=== PATIENT | female | born 1945 | race African-American/Black ===

== ENCOUNTER 2016-09-16 08:24 | Emergency (ER) | payer MEDICARE, OTHER ==
[2016-09-16] MEDS ORDERED: Ketorolac Tromethamine 60 MG/2 ML VIAL ONE (08:41)
[2016-09-16] MEDS ORDERED: HYDROcodone/Acetaminophen 10/325 mg Tablet ONE (09:05)
[2016-09-16] MEDS ORDERED: Dexamethasone 4 mg/ml Vial ONE (09:06)
--- NOTE | 2016-09-16 20:07 | RAD ---
LEFT HIP: FINDINGS: No fracture was seen. There is mild joint space narrowing and some very minimal bony spurring. Ther e is slight sclerosis of the body of the left pubic bone near the symphysis, most likely long standi ng. IMPRESSION: 1. Minimal arthritic changes. 2. Mild sclerosis of the body of the left pubic bone of uncertain significance, probably not acute. POS: HOME
== END 2016-09-16 09:15 | disposition home or self-care (01) ==
LOC: BURERS 08:24
DX: M16.12 Unilateral primary osteoarthritis, left hip (principal); I10 Essential (primary) hypertension; Z79.891 Long term (current) use of opiate analgesic; Z79.899 Other long term (current) drug therapy
CPT/HCPCS: 96372; J1100; J1885

== ENCOUNTER 2017-06-08 15:23 | Emergency (ER) | payer MEDICARE, OTHER ==
[2017-06-08 16:19] LABS: Hemoglobin 12.8 g/dL (12.0-16.0); Mean Corpuscular HGB CONC 31.2 g/dL (32.0-36.0); Mean Corpuscular Hemoglobin 27.1 pg (27.0-31.0); Mean Corpuscular Volume 86.9 fl (81.0-99.0); Mean Platelet Volume 10.5 fL (7.4-10.4); Platelet Count 184 thou/uL (130-400); RBC Distribution Width 15.5 % (11.5-14.5); Red Blood Cell (RBC) Count 4.72 mill/uL (4.20-5.40); White Blood Cell (WBC) Count 20.2 thou/uL (4.8-10.8)
[2017-06-08 16:31] LABS: ALT (SGPT) 15 U/L (8-55); AST (SGOT) 14 U/L (5-34); Alkaline Phosphatase 127 U/L (40-150); Anion Gap 20 mmol/L (10-20); BUN (Urea Nitrogen) 41 mg/dL (9.8-20.1); Calc. Creatinine Clearance 0 mL/min (70-130); Calcium 10.3 mg/dL (7.8-10.44); Carbon Dioxide 26 mmol/L (23-31); Chloride 98 mmol/L (98-107); Estimated GFR-MDRD 51; Globulin 3.5 g/dL (2.4-3.5); Glucose 123 mg/dL (80-115); Potassium 4.1 mmol/L (3.5-5.1); Protein, Total 7.5 g/dL (6.0-8.3); Sodium 140 mmol/L (136-145)
[2017-06-08 16:33] LABS: Lymphocytes 16 % (21-51); MDiff Complete? YES; Monocytes 16 % (0-10); Neutrophil 67 % (42-75)
--- NOTE | 2017-06-08 18:07 | RAD ---
CHEST TWO VIEWS 06/08/17 HISTORY: Productive cough. FINDINGS: The cardiac silhouette and pulmonary vasculature are unremarkable. Mediastinum is midline with aortic calcification. There is no confluent air space consolidation, pneumothorax or pleural fluid apparent . Degenerative changes involve the thoracic spine and shoulders. IMPRESSION: 1. Atherosclerosis. 2. No active cardiopulmonary abnormalities are demonstrated. POS: [facility]
[2017-06-08] MEDS ORDERED: traMADol HCl 50 MG TAB ONE (18:20)
[2017-06-08 19:35] LABS: Bilirubin Negative (Negative); Blood, Urine Negative (Negative); Clarity Clear (Clear); Glucose, Urine (Dipstick) Negative (Negative); Leukocyte Negative (Negative); Nitrite Negative (Negative); Protein, Urine (Dipstick) Negative (Neg-Trace); pH, Urine 6.5 (5.0-9.0)
== END 2017-06-08 20:42 | disposition home or self-care (01) ==
LOC: BURERS 15:23
DX: E86.0 Dehydration (principal); I10 Essential (primary) hypertension; F17.210 Nicotine dependence, cigarettes, uncomplicated; Z79.899 Other long term (current) drug therapy
CPT/HCPCS: 71020; 80053; 81003; 83605; 85025; 96360; 96361

== ENCOUNTER 2017-06-15 10:09 | Emergency (ER) | payer MEDICARE, OTHER ==
[2017-06-15 10:57] LABS: #Basophils 0.1 thou/uL (0.0-0.2); #Eosinphils 0.1 thou/uL (0.0-0.7); #Lymphocytes 1.3 thou/uL (1.20-3.40); #Neutrophils 7.5 thou/uL (1.40-6.50); %Basophils 1.4 % (0.0-1.0); %Eosinophils 1.2 % (0.0-10.0); %Lymphocytes 12.9 % (21.0-51.0); %Monocytes 9.5 % (0.0-10.0); Hemoglobin 10.1 g/dL (12.0-16.0); Mean Corpuscular HGB CONC 32.4 g/dL (32.0-36.0); Mean Corpuscular Hemoglobin 27.9 pg (27.0-31.0); Mean Corpuscular Volume 85.9 fl (81.0-99.0); Platelet Count 237 thou/uL (130-400); RBC Distribution Width 14.4 % (11.5-14.5); Red Blood Cell (RBC) Count 3.64 mill/uL (4.20-5.40)
[2017-06-15 11:18] LABS: ALT (SGPT) 84 U/L (8-55); AST (SGOT) 206 U/L (5-34); Albumin 3.4 g/dL (3.4-4.8); Alkaline Phosphatase 111 U/L (40-150); Anion Gap 26 mmol/L (10-20); BUN (Urea Nitrogen) 72 mg/dL (9.8-20.1); Bilirubin, Total 0.6 mg/dL (0.2-1.2); Calc. Creatinine Clearance 0 mL/min (70-130); Calcium 8.6 mg/dL (7.8-10.44); Carbon Dioxide 18 mmol/L (23-31); Chloride 91 mmol/L (98-107); Estimated GFR-MDRD 18; Glucose 107 mg/dL (80-115); Potassium 3.9 mmol/L (3.5-5.1); Protein, Total 6.4 g/dL (6.0-8.3); Sodium 131 mmol/L (136-145)
[2017-06-15 11:28] LABS: CKMB 143.2 ng/mL (0-6.6)
[2017-06-15] MEDS ORDERED: Heparin 5,000 UNITS/ML VIAL ONE ×2 (11:30→11:49)
--- NOTE | 2017-06-15 16:45 | RAD ---
PORTABLE CHEST: Date: 06-15-17 Time: 1025 Comparison: 05-08-17 FINDINGS: The heart is probably normal in size given the body habitus and an AP film. She is turned slightly to the right which makes evaluation of the lung bases difficult. The lungs are most likely clear. There are no congestive changes, pleural effusions, or other findings of concern. IMPRESSION: No definite acute findings. Minimal basilar haziness is probably due to positioning and overlying sof t tissues. POS: HOME
== END 2017-06-15 12:09 | disposition short-term general hospital (02) ==
LOC: BURERS 10:09
DX: I21.4 Non-ST elevation (NSTEMI) myocardial infarction (principal); N17.9 Acute kidney failure, unspecified; R79.1 Abnormal coagulation profile; I10 Essential (primary) hypertension; F17.210 Nicotine dependence, cigarettes, uncomplicated; Z79.891 Long term (current) use of opiate analgesic; Z79.899 Other long term (current) drug therapy
CPT/HCPCS: 71010; 80053; 82553; 83605; 83880; 84484; 85025; 85379; 87040; 96361; 96374; 96376; J1644

== ENCOUNTER 2017-06-19 12:55 | Inpatient (IN) | payer MEDICARE, OTHER ==
[2017-06-19 14:41] VITALS: BMI 38.9
[2017-06-19] MEDS ORDERED: Senokot 8.6 MG TAB PO PRN (14:58)
[2017-06-19] MEDS ORDERED: Calcium Carbonate 500 MG ChewTAB PO PRN (14:58)
[2017-06-19] MEDS ORDERED: Acetaminophen 325 MG TAB PO PRN (14:58)
[2017-06-19] MEDS ORDERED: Ibuprofen 200 MG TAB PO PRN (15:15)
[2017-06-19] MEDS: Scopolamine 1.5 mg/72 hour Patch TD SCH (16:10)
[2017-06-19] MEDS: Vancomycin HCl 25 MG/ML Oral PO SCH ×2 (17:39→20:38)
[2017-06-19] MEDS: traMADol HCl 50 MG TAB PO PRN (18:53)
[2017-06-19] MEDS: Saccharomyces boulardii 250 MG CAP PO SCH (20:39)
[2017-06-19] MEDS: Sodium Bicarbonate Tab 325 MG TAB PO SCH (20:39)
[2017-06-19] MEDS: Apixaban 5 MG TAB PO SCH (20:39)
[2017-06-19] MEDS: Sulfameth/Trimethoprim DS 800-160mg TAB PO SCH (20:40)
[2017-06-19] MEDS: Famotidine 20 MG TAB PO SCH (20:40)
[2017-06-19] MEDS: PROVENTIL INHALER 6.7 G (200 INHALATIONS) INH PRN (23:18)
[2017-06-20] MEDS: traMADol HCl 50 MG TAB PO PRN ×3 (04:00→20:46)
[2017-06-20 06:10] LABS: #Basophils 0.1 thou/uL (0.0-0.2); #Eosinphils 0.1 thou/uL (0.0-0.7); #Lymphocytes 2.2 thou/uL (1.20-3.40); #Monocytes 1.9 thou/uL (0.11-0.59); #Neutrophils 8.5 thou/uL (1.40-6.50); %Basophils 0.8 % (0.0-1.0); %Eosinophils 1.1 % (0.0-10.0); %Monocytes 14.6 % (0.0-10.0); %Neutrophils 66.5 % (42.0-75.0); Hemoglobin 8.6 g/dL (12.0-16.0); Mean Corpuscular Hemoglobin 27.3 pg (27.0-31.0); Mean Corpuscular Volume 85.3 fl (81.0-99.0); Mean Platelet Volume 6.4 fL (7.4-10.4); Platelet Count 236 thou/uL (130-400); RBC Distribution Width 14.9 % (11.5-14.5); Red Blood Cell (RBC) Count 3.16 mill/uL (4.20-5.40); White Blood Cell (WBC) Count 12.8 thou/uL (4.8-10.8)
[2017-06-20 06:22] LABS: ALT (SGPT) 37 U/L (8-55); AST (SGOT) 23 U/L (5-34); Albumin 2.8 g/dL (3.4-4.8); Alkaline Phosphatase 72 U/L (40-150); Anion Gap 14 mmol/L (10-20); BUN (Urea Nitrogen) 10 mg/dL (9.8-20.1); Bilirubin, Total 0.4 mg/dL (0.2-1.2); Calc. Creatinine Clearance 113 mL/min (70-130); Calcium 9.4 mg/dL (7.8-10.44); Carbon Dioxide 18 mmol/L (23-31); Chloride 116 mmol/L (98-107); Estimated GFR-MDRD Greater than 90; Globulin 3.1 g/dL (2.4-3.5); Glucose 94 mg/dL (80-115); Potassium 3.4 mmol/L (3.5-5.1); Protein, Total 5.9 g/dL (6.0-8.3); Sodium 145 mmol/L (136-145)
--- NOTE | 2017-06-20 06:53 | RAD ---
LEFT AND RIGHT HIP: Date: 06/19/17 Two views of each hip were obtained. No fracture, recent or remote, was seen in either hip. The joint space is normal in width and symmetrical bilaterally. There are no substantial degenerative changes considering the patient's age. Each femoral neck appeared intact, as did each pubic ring. The pubic s ymphysis shows no widening or offset. IMPRESSION: No acute bony findings. POS: HOME
[2017-06-20] MEDS: Sodium Bicarbonate Tab 325 MG TAB PO SCH ×3 (08:46→20:46)
[2017-06-20] MEDS: Atorvastatin Calcium 10 MG TAB PO SCH (08:47)
[2017-06-20] MEDS: Apixaban 5 MG TAB PO SCH ×3 (08:50→20:46)
[2017-06-20] MEDS: Torsemide 20 MG TAB PO SCH (08:51)
[2017-06-20] MEDS: Lisinopril 20 MG TAB PO SCH (08:53)
[2017-06-20] MEDS: Famotidine 20 MG TAB PO SCH ×2 (08:53→20:48)
[2017-06-20] MEDS: Sulfameth/Trimethoprim DS 800-160mg TAB PO SCH ×2 (08:54→21:34)
[2017-06-20] MEDS: Potassium Chloride 20 MEQ TAB PO SCH (08:54)
[2017-06-20] MEDS: Saccharomyces boulardii 250 MG CAP PO SCH ×2 (08:55→20:46)
[2017-06-20] MEDS: Vancomycin HCl 25 MG/ML Oral PO SCH ×4 (08:55→20:54)
[2017-06-20] MEDS: PROVENTIL INHALER 6.7 G (200 INHALATIONS) INH PRN (10:01)
[2017-06-21 06:17] LABS: #Basophils 0.3 thou/uL (0.0-0.2); #Eosinphils 0.2 thou/uL (0.0-0.7); #Lymphocytes 3.4 thou/uL (1.20-3.40); #Monocytes 1.9 thou/uL (0.11-0.59); #Neutrophils 13.7 thou/uL (1.40-6.50); %Basophils 1.6 % (0.0-1.0); %Eosinophils 0.9 % (0.0-10.0); %Lymphocytes 17.3 % (21.0-51.0); %Monocytes 9.7 % (0.0-10.0); %Neutrophils 70.5 % (42.0-75.0); Hemoglobin 10.7 g/dL (12.0-16.0); Mean Corpuscular Hemoglobin 27.9 pg (27.0-31.0); Mean Corpuscular Volume 84.4 fl (81.0-99.0); Mean Platelet Volume 7.2 fL (7.4-10.4); Platelet Count 375 thou/uL (130-400); RBC Distribution Width 14.5 % (11.5-14.5); Red Blood Cell (RBC) Count 3.83 mill/uL (4.20-5.40); White Blood Cell (WBC) Count 19.4 thou/uL (4.8-10.8)
[2017-06-21 06:38] LABS: ALT (SGPT) 35 U/L (8-55); AST (SGOT) 21 U/L (5-34); Albumin 3.2 g/dL (3.4-4.8); Alkaline Phosphatase 96 U/L (40-150); Anion Gap 18 mmol/L (10-20); BUN (Urea Nitrogen) 12 mg/dL (9.8-20.1); Bilirubin, Total 0.4 mg/dL (0.2-1.2); Calc. Creatinine Clearance 84 mL/min (70-130); Calcium 9.3 mg/dL (7.8-10.44); Carbon Dioxide 23 mmol/L (23-31); Chloride 107 mmol/L (98-107); Estimated GFR-MDRD 68; Globulin 3.7 g/dL (2.4-3.5); Glucose 139 mg/dL (80-115); Potassium 3.4 mmol/L (3.5-5.1); Protein, Total 6.9 g/dL (6.0-8.3); Sodium 145 mmol/L (136-145)
[2017-06-21] MEDS: traMADol HCl 50 MG TAB PO PRN (06:46)
[2017-06-21] MEDS: Potassium Chloride 20 MEQ TAB PO SCH (10:22)
[2017-06-21] MEDS: Famotidine 20 MG TAB PO SCH ×2 (10:24→21:39)
[2017-06-21] MEDS: Atorvastatin Calcium 10 MG TAB PO SCH (10:24)
[2017-06-21] MEDS: Lisinopril 20 MG TAB PO SCH (10:25)
[2017-06-21] MEDS: Saccharomyces boulardii 250 MG CAP PO SCH ×2 (10:27→21:39)
[2017-06-21] MEDS: Sodium Bicarbonate Tab 325 MG TAB PO SCH ×3 (10:28→21:38)
[2017-06-21] MEDS: Apixaban 5 MG TAB PO SCH ×2 (10:29→21:39)
[2017-06-21] MEDS: Sulfameth/Trimethoprim DS 800-160mg TAB PO SCH ×2 (10:30→21:39)
[2017-06-21] MEDS: Torsemide 20 MG TAB PO SCH (10:30)
[2017-06-21] MEDS: Vancomycin HCl 25 MG/ML Oral PO SCH ×4 (10:42→21:49)
[2017-06-21] MEDS: HYDROcodone/Acetaminophen 7.5/325 mg Tablet PO PRN ×2 (12:34→18:48)
[2017-06-21] MEDS: Lorazepam 0.5 MG TAB PO PRN ×2 (12:34→23:18)
--- NOTE | 2017-06-21 13:27 | RAD ---
PORTABLE CHEST: Date: 06/21/17 An AP portable film at 1114 hours is compared with the 06/15/17 study. The heart is larger today than before. Additionally, there is some slight congestion of the upper lob e vessels. No lobar consolidations or effusions were seen. It is difficult to see the left base well. IMPRESSION: Early congestive changes. CODE T. POS: HOME
[2017-06-21] MEDS: Sodium Chloride 0.9% 1,000 ML IV SCH (15:00)
[2017-06-21 15:28] LABS: Iron 19 ug/dL (50-170); Iron Binding Capacity, Total 191 mcg/dL (265-497)
[2017-06-22] MEDS: HYDROcodone/Acetaminophen 7.5/325 mg Tablet PO PRN ×3 (01:45→16:31)
[2017-06-22 06:29] LABS: #Basophils 0.3 thou/uL (0.0-0.2); #Eosinphils 0.1 thou/uL (0.0-0.7); #Lymphocytes 1.6 thou/uL (1.20-3.40); #Monocytes 1.3 thou/uL (0.11-0.59); #Neutrophils 10.3 thou/uL (1.40-6.50); %Basophils 1.9 % (0.0-1.0); %Eosinophils 0.8 % (0.0-10.0); %Lymphocytes 11.4 % (21.0-51.0); %Monocytes 9.7 % (0.0-10.0); %Neutrophils 76.2 % (42.0-75.0); Hemoglobin 9.6 g/dL (12.0-16.0); Mean Corpuscular HGB CONC 32.5 g/dL (32.0-36.0); Mean Corpuscular Hemoglobin 27.3 pg (27.0-31.0); Mean Corpuscular Volume 84.1 fl (81.0-99.0); Mean Platelet Volume 6.8 fL (7.4-10.4); Platelet Count 344 thou/uL (130-400); RBC Distribution Width 14.5 % (11.5-14.5); Red Blood Cell (RBC) Count 3.52 mill/uL (4.20-5.40); White Blood Cell (WBC) Count 13.6 thou/uL (4.8-10.8)
[2017-06-22 06:41] LABS: ALT (SGPT) 28 U/L (8-55); AST (SGOT) 18 U/L (5-34); Alkaline Phosphatase 83 U/L (40-150); Anion Gap 18 mmol/L (10-20); BUN (Urea Nitrogen) 16 mg/dL (9.8-20.1); Bilirubin, Total 0.4 mg/dL (0.2-1.2); Calc. Creatinine Clearance 69 mL/min (70-130); Calcium 8.5 mg/dL (7.8-10.44); Carbon Dioxide 23 mmol/L (23-31); Chloride 105 mmol/L (98-107); Estimated GFR-MDRD 54; Globulin 3.4 g/dL (2.4-3.5); Glucose 111 mg/dL (80-115); Potassium 3.4 mmol/L (3.5-5.1); Protein, Total 6.4 g/dL (6.0-8.3); Sodium 143 mmol/L (136-145)
[2017-06-22] MEDS: Vancomycin HCl 25 MG/ML Oral PO SCH ×4 (09:29→20:57)
[2017-06-22] MEDS: Torsemide 20 MG TAB PO SCH (09:31)
[2017-06-22] MEDS: Sodium Bicarbonate Tab 325 MG TAB PO SCH ×3 (09:31→20:59)
[2017-06-22] MEDS: Sulfameth/Trimethoprim DS 800-160mg TAB PO SCH ×2 (09:32→20:58)
[2017-06-22] MEDS: Atorvastatin Calcium 10 MG TAB PO SCH (09:34)
[2017-06-22] MEDS: Apixaban 5 MG TAB PO SCH ×2 (09:34→20:55)
[2017-06-22] MEDS: Saccharomyces boulardii 250 MG CAP PO SCH ×2 (09:35→20:55)
[2017-06-22] MEDS: Famotidine 20 MG TAB PO SCH ×2 (09:35→20:56)
[2017-06-22] MEDS: Lisinopril 20 MG TAB PO SCH (09:36)
[2017-06-22] MEDS: Potassium Chloride 20 MEQ TAB PO SCH (09:37)
[2017-06-22] MEDS: Sodium Chloride 0.9% 1,000 ML IV SCH (09:39)
[2017-06-22] MEDS: predniSONE 20 MG TAB PO SCH (09:42)
[2017-06-22] MEDS: Scopolamine 1.5 mg/72 hour Patch TD SCH (16:29)
[2017-06-23] MEDS: Sodium Chloride 0.9% 1,000 ML IV SCH (05:08)
[2017-06-23 06:31] LABS: #Basophils 0.1 thou/uL (0.0-0.2); #Lymphocytes 1.4 thou/uL (1.20-3.40); #Monocytes 1.6 thou/uL (0.11-0.59); #Neutrophils 9.1 thou/uL (1.40-6.50); %Basophils 0.5 % (0.0-1.0); %Eosinophils 0.1 % (0.0-10.0); %Lymphocytes 11.4 % (21.0-51.0); %Monocytes 13.1 % (0.0-10.0); %Neutrophils 74.7 % (42.0-75.0); Hemoglobin 9.2 g/dL (12.0-16.0); Mean Corpuscular HGB CONC 32.7 g/dL (32.0-36.0); Mean Corpuscular Hemoglobin 27.5 pg (27.0-31.0); Mean Corpuscular Volume 84.3 fl (81.0-99.0); Mean Platelet Volume 7.6 fL (7.4-10.4); Platelet Count 332 thou/uL (130-400); RBC Distribution Width 14.8 % (11.5-14.5); Red Blood Cell (RBC) Count 3.35 mill/uL (4.20-5.40); White Blood Cell (WBC) Count 12.1 thou/uL (4.8-10.8)
[2017-06-23 06:44] LABS: ALT (SGPT) 21 U/L (8-55); AST (SGOT) 15 U/L (5-34); Albumin 2.9 g/dL (3.4-4.8); Alkaline Phosphatase 71 U/L (40-150); Anion Gap 15 mmol/L (10-20); BUN (Urea Nitrogen) 17 mg/dL (9.8-20.1); Bilirubin, Total 0.3 mg/dL (0.2-1.2); Calc. Creatinine Clearance 78 mL/min (70-130); Calcium 8.6 mg/dL (7.8-10.44); Carbon Dioxide 27 mmol/L (23-31); Chloride 103 mmol/L (98-107); Estimated GFR-MDRD 62; Globulin 3.2 g/dL (2.4-3.5); Glucose 93 mg/dL (80-115); Potassium 3.3 mmol/L (3.5-5.1); Protein, Total 6.1 g/dL (6.0-8.3); Sodium 142 mmol/L (136-145)
[2017-06-23] MEDS: predniSONE 20 MG TAB PO SCH (08:40)
[2017-06-23] MEDS: Vancomycin HCl 25 MG/ML Oral PO SCH ×4 (08:41→21:00)
[2017-06-23] MEDS: Famotidine 20 MG TAB PO SCH ×2 (08:42→21:00)
[2017-06-23] MEDS: Torsemide 20 MG TAB PO SCH (08:44)
[2017-06-23] MEDS: Sulfameth/Trimethoprim DS 800-160mg TAB PO SCH ×2 (08:46→21:00)
[2017-06-23] MEDS: Lisinopril 20 MG TAB PO SCH (08:47)
[2017-06-23] MEDS: Atorvastatin Calcium 10 MG TAB PO SCH (08:50)
[2017-06-23] MEDS: Apixaban 5 MG TAB PO SCH ×2 (08:50→20:59)
[2017-06-23] MEDS: Potassium Chloride 20 MEQ TAB PO SCH ×2 (08:52→18:12)
[2017-06-23] MEDS: Sodium Bicarbonate Tab 325 MG TAB PO SCH ×3 (08:55→20:59)
[2017-06-23] MEDS: Saccharomyces boulardii 250 MG CAP PO SCH ×2 (08:56→20:59)
[2017-06-24] MEDS: Sodium Chloride 0.9% 1,000 ML IV SCH (00:40)
[2017-06-24 06:13] LABS: #Basophils 0.2 thou/uL (0.0-0.2); #Lymphocytes 1.8 thou/uL (1.20-3.40); #Monocytes 1.3 thou/uL (0.11-0.59); #Neutrophils 10.1 thou/uL (1.40-6.50); %Basophils 1.2 % (0.0-1.0); %Eosinophils 0.1 % (0.0-10.0); %Lymphocytes 13.1 % (21.0-51.0); %Neutrophils 75.6 % (42.0-75.0); Hemoglobin 9.4 g/dL (12.0-16.0); Mean Corpuscular HGB CONC 31.7 g/dL (32.0-36.0); Mean Corpuscular Hemoglobin 27.1 pg (27.0-31.0); Mean Corpuscular Volume 85.5 fl (81.0-99.0); Mean Platelet Volume 6.9 fL (7.4-10.4); Platelet Count 383 thou/uL (130-400); Red Blood Cell (RBC) Count 3.45 mill/uL (4.20-5.40); White Blood Cell (WBC) Count 13.4 thou/uL (4.8-10.8)
[2017-06-24 06:25] LABS: ALT (SGPT) 20 U/L (8-55); AST (SGOT) 17 U/L (5-34); Albumin 2.8 g/dL (3.4-4.8); Alkaline Phosphatase 67 U/L (40-150); Anion Gap 14 mmol/L (10-20); BUN (Urea Nitrogen) 17 mg/dL (9.8-20.1); Bilirubin, Total 0.3 mg/dL (0.2-1.2); Calc. Creatinine Clearance 89 mL/min (70-130); Calcium 8.7 mg/dL (7.8-10.44); Carbon Dioxide 28 mmol/L (23-31); Chloride 103 mmol/L (98-107); Estimated GFR-MDRD 72; Globulin 3.1 g/dL (2.4-3.5); Glucose 102 mg/dL (80-115); Potassium 3.3 mmol/L (3.5-5.1); Protein, Total 5.9 g/dL (6.0-8.3); Sodium 142 mmol/L (136-145)
[2017-06-24] MEDS: Potassium Chloride 20 MEQ TAB PO SCH ×2 (09:50→17:26)
[2017-06-24] MEDS: predniSONE 20 MG TAB PO SCH (09:50)
[2017-06-24] MEDS: Atorvastatin Calcium 10 MG TAB PO SCH (09:51)
[2017-06-24] MEDS: Lisinopril 20 MG TAB PO SCH (09:51)
[2017-06-24] MEDS: Apixaban 5 MG TAB PO SCH ×2 (09:51→20:45)
[2017-06-24] MEDS: Famotidine 20 MG TAB PO SCH ×2 (09:51→20:45)
[2017-06-24] MEDS: Saccharomyces boulardii 250 MG CAP PO SCH ×2 (09:52→20:45)
[2017-06-24] MEDS: Torsemide 20 MG TAB PO SCH (09:53)
[2017-06-24] MEDS: Sulfameth/Trimethoprim DS 800-160mg TAB PO SCH ×2 (09:53→20:45)
[2017-06-24] MEDS: Sodium Bicarbonate Tab 325 MG TAB PO SCH ×3 (09:53→20:44)
[2017-06-24] MEDS: Vancomycin HCl 25 MG/ML Oral PO SCH ×4 (10:14→20:44)
[2017-06-25] MEDS: Potassium Chloride 20 MEQ TAB PO SCH ×2 (10:40→17:15)
[2017-06-25] MEDS: Atorvastatin Calcium 10 MG TAB PO SCH (10:41)
[2017-06-25] MEDS: Saccharomyces boulardii 250 MG CAP PO SCH ×2 (10:41→20:55)
[2017-06-25] MEDS: Apixaban 5 MG TAB PO SCH ×2 (10:41→20:55)
[2017-06-25] MEDS: Vancomycin HCl 25 MG/ML Oral PO SCH ×4 (10:41→20:54)
[2017-06-25] MEDS: Torsemide 20 MG TAB PO SCH (10:42)
[2017-06-25] MEDS: predniSONE 20 MG TAB PO SCH (10:43)
[2017-06-25] MEDS: Famotidine 20 MG TAB PO SCH ×2 (10:43→20:55)
[2017-06-25] MEDS: Lisinopril 20 MG TAB PO SCH (10:43)
[2017-06-25] MEDS: Sulfameth/Trimethoprim DS 800-160mg TAB PO SCH ×2 (10:43→20:55)
[2017-06-25] MEDS: Sodium Bicarbonate Tab 325 MG TAB PO SCH ×3 (10:44→20:55)
[2017-06-25] MEDS: HYDROcodone/Acetaminophen 7.5/325 mg Tablet PO PRN (13:36)
[2017-06-25] MEDS: Scopolamine 1.5 mg/72 hour Patch TD SCH (14:46)
[2017-06-26] MEDS: Sodium Bicarbonate Tab 325 MG TAB PO SCH ×3 (10:06→20:30)
[2017-06-26] MEDS: Potassium Chloride 20 MEQ TAB PO SCH ×2 (10:07→17:08)
[2017-06-26] MEDS: Torsemide 20 MG TAB PO SCH (10:10)
[2017-06-26] MEDS: Atorvastatin Calcium 10 MG TAB PO SCH (10:10)
[2017-06-26] MEDS: Apixaban 5 MG TAB PO SCH ×2 (10:11→20:31)
[2017-06-26] MEDS: Sulfameth/Trimethoprim DS 800-160mg TAB PO SCH ×2 (10:11→20:32)
[2017-06-26] MEDS: predniSONE 20 MG TAB PO SCH (10:12)
[2017-06-26] MEDS: Famotidine 20 MG TAB PO SCH ×2 (10:12→20:32)
[2017-06-26] MEDS: Lisinopril 20 MG TAB PO SCH (10:12)
[2017-06-26] MEDS: Saccharomyces boulardii 250 MG CAP PO SCH ×2 (10:13→20:32)
[2017-06-26] MEDS: Vancomycin HCl 25 MG/ML Oral PO SCH ×4 (10:14→20:30)
[2017-06-27 05:24] LABS: #Basophils 0.2 thou/uL (0.0-0.2); #Lymphocytes 2.5 thou/uL (1.20-3.40); #Neutrophils 12.4 thou/uL (1.40-6.50); %Basophils 1.1 % (0.0-1.0); %Eosinophils 0.2 % (0.0-10.0); %Lymphocytes 14.4 % (21.0-51.0); %Monocytes 11.4 % (0.0-10.0); %Neutrophils 72.8 % (42.0-75.0); Hemoglobin 10.9 g/dL (12.0-16.0); Mean Corpuscular HGB CONC 32.4 g/dL (32.0-36.0); Mean Corpuscular Hemoglobin 27.4 pg (27.0-31.0); Mean Corpuscular Volume 84.5 fl (81.0-99.0); Mean Platelet Volume 7.2 fL (7.4-10.4); Platelet Count 477 thou/uL (130-400); RBC Distribution Width 14.9 % (11.5-14.5); Red Blood Cell (RBC) Count 3.98 mill/uL (4.20-5.40); White Blood Cell (WBC) Count 17.1 thou/uL (4.8-10.8)
[2017-06-27 05:37] LABS: ALT (SGPT) 14 U/L (8-55); AST (SGOT) 14 U/L (5-34); Albumin 3.3 g/dL (3.4-4.8); Alkaline Phosphatase 71 U/L (40-150); Anion Gap 14 mmol/L (10-20); BUN (Urea Nitrogen) 24 mg/dL (9.8-20.1); Bilirubin, Total 0.4 mg/dL (0.2-1.2); Calc. Creatinine Clearance 55 mL/min (70-130); Calcium 9.8 mg/dL (7.8-10.44); Carbon Dioxide 28 mmol/L (23-31); Chloride 101 mmol/L (98-107); Estimated GFR-MDRD 42; Globulin 3.4 g/dL (2.4-3.5); Glucose 87 mg/dL (80-115); Magnesium 1.3 mg/dL (1.6-2.6); Potassium 4.2 mmol/L (3.5-5.1); Protein, Total 6.7 g/dL (6.0-8.3); Sodium 139 mmol/L (136-145)
[2017-06-27] MEDS: Vancomycin HCl 25 MG/ML Oral PO SCH ×4 (09:09→20:09)
[2017-06-27] MEDS: Sodium Bicarbonate Tab 325 MG TAB PO SCH ×3 (09:09→20:07)
[2017-06-27] MEDS: predniSONE 20 MG TAB PO SCH (09:11)
[2017-06-27] MEDS: Atorvastatin Calcium 10 MG TAB PO SCH (09:11)
[2017-06-27] MEDS: Famotidine 20 MG TAB PO SCH ×2 (09:11→20:06)
[2017-06-27] MEDS: Potassium Chloride 20 MEQ TAB PO SCH ×2 (09:12→16:25)
[2017-06-27] MEDS: Magnesium Oxide 400 MG TAB PO SCH ×2 (09:12→20:07)
[2017-06-27] MEDS: Torsemide 20 MG TAB PO SCH (09:13)
[2017-06-27] MEDS: Lisinopril 20 MG TAB PO SCH (09:14)
[2017-06-27] MEDS: Apixaban 5 MG TAB PO SCH ×2 (09:14→20:08)
[2017-06-27] MEDS: Saccharomyces boulardii 250 MG CAP PO SCH ×2 (09:15→20:08)
[2017-06-27] MEDS ORDERED: Sodium Chloride 0.9% 10 ML ONE ×2 (09:25→10:57)
[2017-06-27 10:11] LABS: Bilirubin Negative (Negative); Blood, Urine Large (Negative); Clarity Clear (Clear); Glucose, Urine (Dipstick) Negative (Negative); Leukocyte Negative (Negative); Nitrite Negative (Negative); Protein, Urine (Dipstick) Negative (Neg-Trace); Specific Gravity, Urine 1.015 (1.005-1.030); Urobilinogen 0.2 mg/dL (0.2-1.0); pH, Urine 7.5 (5.0-9.0)
[2017-06-27 10:42] LABS: Bacteria/HPF 1+ HPF (None Seen); RBC/HPF 21-50 HPF (0-3); Squamous Epithelial 0-3 HPF (0-3); WBC/HPF 0-3 HPF (0-3)
[2017-06-27] MEDS: Sodium Chloride 0.9% 1,000 ML IV SCH (11:27)
[2017-06-28 05:27] LABS: #Basophils 0.2 thou/uL (0.0-0.2); #Lymphocytes 2.9 thou/uL (1.20-3.40); #Monocytes 1.7 thou/uL (0.11-0.59); #Neutrophils 12.3 thou/uL (1.40-6.50); %Basophils 1.2 % (0.0-1.0); %Eosinophils 0.2 % (0.0-10.0); %Lymphocytes 16.7 % (21.0-51.0); %Monocytes 9.7 % (0.0-10.0); %Neutrophils 72.2 % (42.0-75.0); Hemoglobin 10.1 g/dL (12.0-16.0); Mean Corpuscular HGB CONC 31.4 g/dL (32.0-36.0); Mean Corpuscular Hemoglobin 26.6 pg (27.0-31.0); Mean Corpuscular Volume 84.7 fl (81.0-99.0); Mean Platelet Volume 7.4 fL (7.4-10.4); Platelet Count 479 thou/uL (130-400)
[2017-06-28 05:46] LABS: ALT (SGPT) 13 U/L (8-55); AST (SGOT) 14 U/L (5-34); Albumin 3.2 g/dL (3.4-4.8); Alkaline Phosphatase 69 U/L (40-150); Anion Gap 17 mmol/L (10-20); BUN (Urea Nitrogen) 29 mg/dL (9.8-20.1); Bilirubin, Total 0.5 mg/dL (0.2-1.2); Calc. Creatinine Clearance 40 mL/min (70-130); Calcium 9.7 mg/dL (7.8-10.44); Carbon Dioxide 22 mmol/L (23-31); Chloride 101 mmol/L (98-107); Estimated GFR-MDRD 29; Globulin 3.2 g/dL (2.4-3.5); Glucose 87 mg/dL (80-115); Potassium 4.4 mmol/L (3.5-5.1); Protein, Total 6.4 g/dL (6.0-8.3); Sodium 136 mmol/L (136-145)
[2017-06-28] MEDS: Sodium Chloride 0.9% 1,000 ML IV SCH ×2 (08:11→11:33)
[2017-06-28] MEDS: Sodium Bicarbonate Tab 325 MG TAB PO SCH ×3 (08:12→21:48)
[2017-06-28] MEDS: Potassium Chloride 20 MEQ TAB PO SCH ×2 (08:12→17:55)
[2017-06-28] MEDS: Magnesium Oxide 400 MG TAB PO SCH ×2 (08:14→21:48)
[2017-06-28] MEDS: Torsemide 20 MG TAB PO SCH (08:14)
[2017-06-28] MEDS: Saccharomyces boulardii 250 MG CAP PO SCH ×2 (08:14→21:49)
[2017-06-28] MEDS: Apixaban 5 MG TAB PO SCH ×2 (08:14→21:49)
[2017-06-28] MEDS: Atorvastatin Calcium 10 MG TAB PO SCH (08:14)
[2017-06-28] MEDS: Famotidine 20 MG TAB PO SCH ×2 (08:14→21:48)
[2017-06-28] MEDS: Lisinopril 20 MG TAB PO SCH (08:15)
[2017-06-28] MEDS: Vancomycin HCl 25 MG/ML Oral PO SCH ×4 (08:22→21:48)
[2017-06-28] MEDS: HYDROcodone/Acetaminophen 7.5/325 mg Tablet PO PRN (12:17)
[2017-06-28] MEDS: Scopolamine 1.5 mg/72 hour Patch TD SCH (15:15)
[2017-06-29] MEDS: Sodium Chloride 0.9% 1,000 ML IV SCH ×2 (01:50→08:44)
[2017-06-29 08:13] LABS: #Basophils 0.1 thou/uL (0.0-0.2); #Eosinphils 0.1 thou/uL (0.0-0.7); #Lymphocytes 3.2 thou/uL (1.20-3.40); #Monocytes 1.6 thou/uL (0.11-0.59); #Neutrophils 9.2 thou/uL (1.40-6.50); %Basophils 0.8 % (0.0-1.0); %Eosinophils 0.4 % (0.0-10.0); %Lymphocytes 22.4 % (21.0-51.0); %Monocytes 11.3 % (0.0-10.0); %Neutrophils 65.1 % (42.0-75.0); Hemoglobin 10.8 g/dL (12.0-16.0); Mean Corpuscular HGB CONC 33.8 g/dL (32.0-36.0); Mean Corpuscular Hemoglobin 28.6 pg (27.0-31.0); Mean Corpuscular Volume 84.7 fl (81.0-99.0); Mean Platelet Volume 7.2 fL (7.4-10.4); Platelet Count 513 thou/uL (130-400); RBC Distribution Width 14.8 % (11.5-14.5); Red Blood Cell (RBC) Count 3.79 mill/uL (4.20-5.40); White Blood Cell (WBC) Count 14.1 thou/uL (4.8-10.8)
[2017-06-29 08:27] LABS: Anion Gap 19 mmol/L (10-20)
[2017-06-29 08:28] LABS: INR-International Normal Ratio 2.1; Prothrombin Time 24.2 SEC (12.0-14.7)
[2017-06-29 09:13] LABS: ALT (SGPT) 83 U/L (8-55); AST (SGOT) 165 U/L (5-34); Albumin 3.2 g/dL (3.4-4.8); Alkaline Phosphatase 192 U/L (40-150); BUN (Urea Nitrogen) 37 mg/dL (9.8-20.1); Bilirubin, Total 0.7 mg/dL (0.2-1.2); Calc. Creatinine Clearance 24 mL/min (70-130); Calcium 9.4 mg/dL (7.8-10.44); Carbon Dioxide 20 mmol/L (23-31); Chloride 100 mmol/L (98-107); Estimated GFR-MDRD 16; Globulin 3.1 g/dL (2.4-3.5); Glucose 99 mg/dL (80-115); Potassium 5.2 mmol/L (3.5-5.1); Protein, Total 6.3 g/dL (6.0-8.3); Sodium 134 mmol/L (136-145)
[2017-06-29] MEDS ORDERED: Sodium Chloride 0.9% 1,000 ML IV SCH (09:30)
[2017-06-29] MEDS: Magnesium Oxide 400 MG TAB PO SCH (09:41)
[2017-06-29] MEDS: Atorvastatin Calcium 10 MG TAB PO SCH (09:41)
[2017-06-29] MEDS: Apixaban 5 MG TAB PO SCH (09:41)
[2017-06-29] MEDS: Famotidine 20 MG TAB PO SCH (09:41)
[2017-06-29] MEDS: Saccharomyces boulardii 250 MG CAP PO SCH (09:41)
[2017-06-29] MEDS: Vancomycin HCl 25 MG/ML Oral PO SCH ×3 (09:42→18:44)
[2017-06-29] MEDS: Sodium Bicarbonate Tab 325 MG TAB PO SCH ×2 (09:42→14:28)
[2017-06-29] MEDS: Lisinopril 20 MG TAB PO SCH (09:44)
[2017-06-29] MEDS: Potassium Chloride 20 MEQ TAB PO SCH (09:44)
[2017-06-29] MEDS: Torsemide 20 MG TAB PO SCH (09:45)
[2017-06-29 16:32] VITALS: BP 104/54
[2017-06-29 17:20] LABS: Anion Gap 21 mmol/L (10-20); BUN (Urea Nitrogen) 40 mg/dL (9.8-20.1); Calc. Creatinine Clearance 21 mL/min (70-130); Calcium 9.3 mg/dL (7.8-10.44); Carbon Dioxide 20 mmol/L (23-31); Chloride 99 mmol/L (98-107); Estimated GFR-MDRD 14; Glucose 93 mg/dL (80-115); Potassium 5.5 mmol/L (3.5-5.1); Sodium 134 mmol/L (136-145)
[2017-06-29] MEDS ORDERED: Sodium Chloride 0.9% 500 ML IVPB SCH (18:30)
[2017-06-29 18:42] VITALS: TEMP 98.9
--- NOTE | 2017-07-02 16:18 | DIS ---
DATE OF ADMISSION: 06/19/2017 DATE OF DISCHARGE: 06/29/2017 PRIMARY CARE PHYSICIAN: Roshan Lemons D.O. ADMITTING PHYSICIAN: Cameron Doty MD DISCHARGE ATTENDING: Cara Vicente M.D. FINAL DIAGNOSES: 1. Acute renal failure. 2. Acute hyperkalemia. 3. Hypotension. 4. Elevated white count. 5. Hypoxemia 6. History of recent urinary tract infection. 7. History of Clostridium difficile colitis. 8. History of deep venous thrombosis, on Eliquis. 9. Congestive heart failure with cardiomegaly. HOSPITAL COURSE: History of present illness/course in the [place] were gathered from admitting history, nurses' notes and progress notes from attending physician. The patient was admitted on 06/15/2017 at [facility] for altered mental status, hypotension with hypovolemic shock, acute renal insufficiency, elevated D-dimer and DVT in the right popliteal vein. She also had rhabdomyolysis and C. diff colitis. During her stay, she was found to have urinary tract infection with Proteus. She was treated with IV fluids and started on vancomycin for C. diff colitis. Due to her multiple comorbid conditions, she was transferred on 06/19/2017 to skilled care in [place] for physical therapy and oral antibiotics. Her admitting labs showed elevated white count of 13. On day of admission, she complained of hip pain. She had normal x-ray. Two days after her admission, she complained of sudden onset of dyspnea with wheezing with saturation of 78%. She was started on breathing treatments and was subsequently placed on oxygen. Cuong Greene was called, her condition slightly improved. Her chest x-ray showed congestive changes. That night, she developed low-grade fever with white count of 19. Her breathing remained tachypneic with decreased breath sounds. On her fourth hospital day, she complained of stomach pain and diarrhea throughout her stay. Her WBC count remained high throughout her stay as well. On 06/27/2017, her blood pressures were reading low. Creatinine level was at 1.5, hence fluids were started. Her blood pressure remained in the low 100s the following day with fluids running. We repeated her creatinine showing level of 2.0. We then pushed more fluids. The patient was coherent and asymptomatic at that time. The following day, we stopped blood pressure medications because of hypotension and worsening creatinine level. With worsening renal function, ongoing C. diff infection, and persistently elevated white count, we then decided to transfer her to [facility] for higher level of care. This was discussed in great detail with Dr. Pink, ER doctor. CONDITION: Guarded. MEDICATIONS: See list. Advised to hold blood pressure medication until vital signs are stable. MTDD
== END 2017-06-29 18:25 | disposition short-term general hospital (02) | DRG 871 ==
LOC: BURMED 14:02
PROVIDERS: ADMIT Family Medicine; ATTEND Family Medicine
DX: R57.1 Hypovolemic shock (principal); I21.A1 Myocardial infarction type 2; N17.9 Acute kidney failure, unspecified; I95.9 Hypotension, unspecified; E87.2 Acidosis; I82.431 Acute embolism and thrombosis of right popliteal vein; A04.72 Enterocolitis due to Clostridium difficile, not specified as recurrent; E87.5 Hyperkalemia; E66.01 Morbid (severe) obesity due to excess calories; M62.82 Rhabdomyolysis; N39.0 Urinary tract infection, site not specified; D64.9 Anemia, unspecified; E86.0 Dehydration; G89.29 Other chronic pain; I10 Essential (primary) hypertension; M54.9 Dorsalgia, unspecified; Z79.891 Long term (current) use of opiate analgesic; F17.210 Nicotine dependence, cigarettes, uncomplicated; Z68.39 Body mass index [BMI] 39.0-39.9, adult; E87.6 Hypokalemia; B96.4 Proteus (mirabilis) (morganii) as the cause of diseases classified elsewhere; I51.7 Cardiomegaly
CPT/HCPCS: 36415; 71010; 73522; 80053; 81003; 81015; 82728; 83540; 83550; 83735; 85025; 85610; 94640; 94664; A4216; G8978-GP-CM; G8979-GP-CJ; G8987-GO-CL; G8988-GO-CJ; J7506; J7620

== ENCOUNTER 2017-06-29 18:19 | Emergency (ER) | payer MEDICARE, OTHER ==
[2017-06-29 18:48] LABS: Prothrombin Time 32.3 SEC (12.0-14.7)
[2017-06-29 18:49] LABS: PTT 44.9 SEC (22.9-36.1)
[2017-06-29 18:51] LABS: #Basophils 0.2 thou/uL (0.0-0.2); #Lymphocytes 4.3 thou/uL (1.20-3.40); #Monocytes 1.7 thou/uL (0.11-0.59); %Basophils 1.1 % (0.0-1.0); %Eosinophils 0.1 % (0.0-10.0); %Lymphocytes 26.4 % (21.0-51.0); %Monocytes 10.5 % (0.0-10.0); %Neutrophils 61.9 % (42.0-75.0); Hemoglobin 10.7 g/dL (12.0-16.0); Mean Corpuscular HGB CONC 33.2 g/dL (32.0-36.0); Mean Corpuscular Hemoglobin 28.1 pg (27.0-31.0); Mean Corpuscular Volume 84.7 fl (81.0-99.0); Mean Platelet Volume 7.2 fL (7.4-10.4); Platelet Count 527 thou/uL (130-400); RBC Distribution Width 15.2 % (11.5-14.5); Red Blood Cell (RBC) Count 3.81 mill/uL (4.20-5.40); White Blood Cell (WBC) Count 16.2 thou/uL (4.8-10.8)
[2017-06-29 18:57] LABS: Anion Gap 24 mmol/L (10-20)
[2017-06-29] MEDS ORDERED: Fentanyl 100 MCG/2 ML VIAL ONE (18:58)
[2017-06-29 19:03] LABS: D-Dimer Test 6.88 *mcg/mL (0.27-0.43)
[2017-06-29 19:06] LABS: Vancomycin, Random Less than 1.1 ug/mL (See Comment)
[2017-06-29 19:16] LABS: pH (venous) 7.39 (7.35-7.45)
[2017-06-29 19:17] LABS: Base Excess -7.1 mEq/L (-2 - +2); Hemoglobin (Hb) 10.5 g/dL (11.7-16.1)
[2017-06-29 19:28] LABS: ALT (SGPT) 624 U/L (8-55); AST (SGOT) 1019 U/L (5-34); Albumin 3.3 g/dL (3.4-4.8); Alkaline Phosphatase 347 U/L (40-150); BUN (Urea Nitrogen) 41 mg/dL (9.8-20.1); Bilirubin, Total 1.4 mg/dL (0.2-1.2); CK (CPK) 35 U/L (29-168); Calc. Creatinine Clearance 0 mL/min (70-130); Calcium 9.4 mg/dL (7.8-10.44); Carbon Dioxide 18 mmol/L (23-31); Chloride 99 mmol/L (98-107); Estimated GFR-MDRD 13; Globulin 3.5 g/dL (2.4-3.5); Glucose 97 mg/dL (80-115); Protein, Total 6.8 g/dL (6.0-8.3); Sodium 135 mmol/L (136-145)
[2017-06-29] MEDS ORDERED: Dextrose 50% Abboject 50 ML SYRINGE ONE (19:36)
[2017-06-29] MEDS ORDERED: Insulin Regular 300 UNITS/3 ML VIAL ONE (19:36)
[2017-06-29] MEDS ORDERED: Calcium Gluc 4.6 MEQ/10 ML (100 MG/ML) ONE (19:36)
--- NOTE | 2017-06-29 19:45 | RAD ---
RADIOGRAPH CHEST 1 VIEW: HISTORY: 72-year-old female with dyspnea. FINDINGS: There is cardiomegaly. There is no evidence of air space density, pulmonary edema, or pneumothorax. T he lateral costophrenic angles are sharp. IMPRESSION: 1) No acute pulmonary findings. 2) Severe cardiomegaly without congestive heart failure. judith POS: [facility]
== END 2017-06-29 20:06 | disposition short-term general hospital (02) ==
LOC: BURERS 18:19
DX: I95.9 Hypotension, unspecified (principal); A04.72 Enterocolitis due to Clostridium difficile, not specified as recurrent; N17.9 Acute kidney failure, unspecified; E87.5 Hyperkalemia; R94.5 Abnormal results of liver function studies; I51.7 Cardiomegaly; I82.409 Acute embolism and thrombosis of unspecified deep veins of unspecified lower extremity; R79.89 Other specified abnormal findings of blood chemistry; I10 Essential (primary) hypertension; F17.210 Nicotine dependence, cigarettes, uncomplicated; Z79.891 Long term (current) use of opiate analgesic; Z79.899 Other long term (current) drug therapy
CPT/HCPCS: 71010; 80202; 82553; 82805; 83605; 83880; 84484; 85379; 85730; 93005; 94760; 96361; 96374; 96375; J1815; J3010